=== PATIENT | female | born 1960 | race Caucasian/White ===

== ENCOUNTER 2021-07-09 10:32 | Inpatient (IN) | payer SELFPAY ==
[2021-07-09 11:36] LABS: #Basophils 0.1 thou/uL (0.0-0.2); #Eosinphils 0.1 thou/uL (0.0-0.7); #Lymphocytes 2.3 thou/uL (1.20-3.40); #Monocytes 0.5 thou/uL (0.11-0.59); #Neutrophils 4.3 thou/uL (1.40-6.50); %Lymphocytes 31.2 % (21.0-51.0); %Monocytes 7.2 % (0.0-10.0); %Neutrophils 59.5 % (42.0-75.0); Hemoglobin 13.8 g/dL (12.0-16.0); Mean Corpuscular HGB CONC 34.3 g/dL (32.0-36.0); Mean Corpuscular Hemoglobin 32.5 pg (27.0-31.0); Mean Corpuscular Volume 94.5 fL (78.0-98.0); Mean Platelet Volume 8.1 fL (7.4-10.4); Platelet Count 214 thou/uL (130-400); RBC Distribution Width 11.8 % (11.5-14.5); Red Blood Cell (RBC) Count 4.26 mill/uL (4.20-5.40); White Blood Cell (WBC) Count 7.3 thou/uL (4.8-10.8)
[2021-07-09 11:52] LABS: ALT (SGPT) 12 U/L (8-55); AST (SGOT) 18 U/L (5-34); Albumin 3.7 g/dL (3.5-5.0); Alkaline Phosphatase 67 U/L (40-110); Anion Gap 12 mmol/L (10-20); BUN (Urea Nitrogen) 18 mg/dL (9.8-20.1); Bilirubin, Total 0.3 mg/dL (0.2-1.2); Calc. Creatinine Clearance 0 mL/min (70-130); Calcium 9.3 mg/dL (7.8-10.44); Carbon Dioxide 24 mmol/L (22-29); Chloride 107 mmol/L (98-107); Globulin 2.9 g/dL (2.4-3.5); Glucose 79 mg/dL (70-105); Protein, Total 6.6 g/dL (6.0-8.3); Sodium 139 mmol/L (136-145)
[2021-07-09] MEDS ORDERED: hydrALAZINE 20 MG/ML VIAL SLOW IVP PRN (14:05)
[2021-07-09] MEDS ORDERED: Aspirin 81 mg Enteric Coated Tablet PO SCH (14:15)
[2021-07-09] MEDS ORDERED: Enoxaparin Sodium 40 MG/0.4 ML SYRINGE SC SCH (14:15)
[2021-07-09] MEDS ORDERED: Iopamidol-370 76% 500 ML 1 ML ONE (15:02)
[2021-07-09 17:16] VITALS: BMI 31.5
[2021-07-09] MEDS: Allopurinol 100 MG TAB PO SCH (20:57)
[2021-07-09] MEDS: Atorvastatin Calcium 40 MG TAB PO SCH (20:57)
[2021-07-09] MEDS: Meclizine HCl 25 MG TAB PO SCH (20:57)
[2021-07-09] MEDS: Acetaminophen 325 MG TAB PO PRN (21:49)
[2021-07-10 00:27] LABS: SARS-CoV-2 PCR by NAA Not Detected (NotDetected)
[2021-07-10 05:19] LABS: #Eosinphils 0.1 thou/uL (0.0-0.7); #Lymphocytes 2.7 thou/uL (1.20-3.40); #Monocytes 0.5 thou/uL (0.11-0.59); #Neutrophils 2.5 thou/uL (1.40-6.50); %Basophils 0.7 % (0.0-1.0); %Eosinophils 1.6 % (0.0-10.0); %Lymphocytes 46.3 % (21.0-51.0); %Monocytes 8.6 % (0.0-10.0); %Neutrophils 42.8 % (42.0-75.0); Hemoglobin 12.6 g/dL (12.0-16.0); Mean Corpuscular HGB CONC 34.2 g/dL (32.0-36.0); Mean Corpuscular Hemoglobin 32.6 pg (27.0-31.0); Mean Corpuscular Volume 95.3 fL (78.0-98.0); Mean Platelet Volume 8.1 fL (7.4-10.4); Platelet Count 197 thou/uL (130-400); Red Blood Cell (RBC) Count 3.86 mill/uL (4.20-5.40); White Blood Cell (WBC) Count 5.8 thou/uL (4.8-10.8)
[2021-07-10 05:23] LABS: Anion Gap 11 mmol/L (10-20); BUN (Urea Nitrogen) 16 mg/dL (9.8-20.1); Calc. Creatinine Clearance 111 mL/min (70-130); Carbon Dioxide 24 mmol/L (22-29); Cardiac Risk 3.6 (Less than 4.5); Chloride 108 mmol/L (98-107); Cholesterol 142 mg/dl (< 200 Desired); Glucose 87 mg/dL (70-105); HDL Cholesterol 39 mg/dL (>60 Neg Risk); LDL Cholesterol, Calculated 86 mg/dL; Potassium 4.2 mmol/L (3.5-5.1); Sodium 139 mmol/L (136-145); Triglycerides 83 mg/dL (Less than 150)
[2021-07-10] MEDS: Meclizine HCl 25 MG TAB PO SCH ×3 (06:27→21:24)
[2021-07-10] MEDS: Acetaminophen 325 MG TAB PO PRN ×2 (06:28→12:25)
[2021-07-10] MEDS: Allopurinol 100 MG TAB PO SCH ×2 (09:10→20:16)
[2021-07-10] MEDS: Enoxaparin Sodium 40 MG/0.4 ML SYRINGE SC SCH (09:10)
[2021-07-10] MEDS: Lisinopril 5 MG TAB PO SCH ×2 (09:10→09:13)
[2021-07-10] MEDS: pyridOXINE 50 MG (B6) TAB PO SCH (09:10)
[2021-07-10] MEDS: Aspirin 81 mg Enteric Coated Tablet PO SCH (09:10)
[2021-07-10] MEDS ORDERED: predniSONE 50 MG TAB PO SCH (12:15)
[2021-07-10] MEDS: traMADol HCl 50 MG TAB PO PRN ×2 (12:26→20:14)
[2021-07-10] MEDS: Atorvastatin Calcium 40 MG TAB PO SCH (20:16)
[2021-07-11] MEDS: Meclizine HCl 25 MG TAB PO SCH ×3 (05:52→21:26)
[2021-07-11] MEDS: traMADol HCl 50 MG TAB PO PRN ×2 (05:52→21:25)
[2021-07-11] MEDS: Acetaminophen 325 MG TAB PO PRN ×2 (08:29→23:21)
[2021-07-11] MEDS: Allopurinol 100 MG TAB PO SCH ×2 (08:29→21:26)
[2021-07-11] MEDS: Aspirin 81 mg Enteric Coated Tablet PO SCH (08:30)
[2021-07-11] MEDS: Lisinopril 5 MG TAB PO SCH (08:30)
[2021-07-11] MEDS: predniSONE 50 MG TAB PO SCH (08:30)
[2021-07-11] MEDS: pyridOXINE 50 MG (B6) TAB PO SCH (08:30)
[2021-07-11] MEDS: Enoxaparin Sodium 40 MG/0.4 ML SYRINGE SC SCH (08:31)
[2021-07-11] MEDS: Polyethylene Glycol 3350 17 GM Packet PO PRN (15:15)
[2021-07-11] MEDS: Atorvastatin Calcium 40 MG TAB PO SCH (21:26)
[2021-07-12 06:08] LABS: #Basophils 0.1 thou/uL (0.0-0.2); #Lymphocytes 3.6 thou/uL (1.20-3.40); #Monocytes 0.6 thou/uL (0.11-0.59); #Neutrophils 4.3 thou/uL (1.40-6.50); %Basophils 0.6 % (0.0-1.0); %Eosinophils 0.4 % (0.0-10.0); %Lymphocytes 42.2 % (21.0-51.0); %Monocytes 6.5 % (0.0-10.0); %Neutrophils 50.2 % (42.0-75.0); Hemoglobin 13.4 g/dL (12.0-16.0); Mean Corpuscular HGB CONC 33.3 g/dL (32.0-36.0); Mean Corpuscular Hemoglobin 31.9 pg (27.0-31.0); Mean Platelet Volume 8.4 fL (7.4-10.4); Platelet Count 202 thou/uL (130-400); Red Blood Cell (RBC) Count 4.21 mill/uL (4.20-5.40); White Blood Cell (WBC) Count 8.5 thou/uL (4.8-10.8)
[2021-07-12] MEDS: Acetaminophen 325 MG TAB PO PRN (06:14)
[2021-07-12] MEDS: Meclizine HCl 25 MG TAB PO SCH ×3 (06:14→22:44)
[2021-07-12 06:29] LABS: Anion Gap 12 mmol/L (10-20); BUN (Urea Nitrogen) 16 mg/dL (9.8-20.1); Calc. Creatinine Clearance 111 mL/min (70-130); Carbon Dioxide 24 mmol/L (22-29); Chloride 108 mmol/L (98-107); Potassium 3.9 mmol/L (3.5-5.1); Sodium 140 mmol/L (136-145)
[2021-07-12 06:30] LABS: Calcium 9.2 mg/dL (7.8-10.44); Glucose 80 mg/dL (70-105)
[2021-07-12] MEDS: Polyethylene Glycol 3350 17 GM Packet PO PRN (08:31)
[2021-07-12] MEDS: Lisinopril 5 MG TAB PO SCH (08:31)
[2021-07-12] MEDS: Enoxaparin Sodium 40 MG/0.4 ML SYRINGE SC SCH (08:31)
[2021-07-12] MEDS: Aspirin 81 mg Enteric Coated Tablet PO SCH (08:32)
[2021-07-12] MEDS: predniSONE 50 MG TAB PO SCH (08:32)
[2021-07-12] MEDS: Allopurinol 100 MG TAB PO SCH ×2 (08:32→20:39)
[2021-07-12] MEDS: pyridOXINE 50 MG (B6) TAB PO SCH (08:32)
[2021-07-12] MEDS: traMADol HCl 50 MG TAB PO PRN ×2 (15:22→20:40)
[2021-07-12] MEDS: Atorvastatin Calcium 40 MG TAB PO SCH (20:39)
[2021-07-13 05:04] LABS: #Lymphocytes 4.1 thou/uL (1.20-3.40); #Monocytes 0.6 thou/uL (0.11-0.59); %Basophils 0.4 % (0.0-1.0); %Eosinophils 0.4 % (0.0-10.0); %Lymphocytes 42.1 % (21.0-51.0); %Neutrophils 51.1 % (42.0-75.0); Hemoglobin 13.6 g/dL (12.0-16.0); Mean Corpuscular HGB CONC 33.6 g/dL (32.0-36.0); Mean Corpuscular Hemoglobin 32.5 pg (27.0-31.0); Mean Corpuscular Volume 96.9 fL (78.0-98.0); Mean Platelet Volume 8.2 fL (7.4-10.4); Platelet Count 216 thou/uL (130-400); RBC Distribution Width 11.9 % (11.5-14.5); Red Blood Cell (RBC) Count 4.19 mill/uL (4.20-5.40); White Blood Cell (WBC) Count 9.7 thou/uL (4.8-10.8)
[2021-07-13] MEDS: traMADol HCl 50 MG TAB PO PRN ×3 (05:13→20:41)
[2021-07-13] MEDS: Meclizine HCl 25 MG TAB PO SCH ×3 (05:13→20:40)
[2021-07-13 05:25] LABS: Anion Gap 10 mmol/L (10-20); BUN (Urea Nitrogen) 21 mg/dL (9.8-20.1); Calc. Creatinine Clearance 111 mL/min (70-130); Calcium 9.1 mg/dL (7.8-10.44); Carbon Dioxide 27 mmol/L (22-29); Chloride 106 mmol/L (98-107); Glucose 79 mg/dL (70-105); Potassium 4.1 mmol/L (3.5-5.1); Sodium 139 mmol/L (136-145)
[2021-07-13] MEDS: Lisinopril 5 MG TAB PO SCH (08:48)
[2021-07-13] MEDS: Enoxaparin Sodium 40 MG/0.4 ML SYRINGE SC SCH (08:48)
[2021-07-13] MEDS: Aspirin 81 mg Enteric Coated Tablet PO SCH (08:48)
[2021-07-13] MEDS: predniSONE 50 MG TAB PO SCH (08:48)
[2021-07-13] MEDS: pyridOXINE 50 MG (B6) TAB PO SCH (08:48)
[2021-07-13] MEDS: Allopurinol 100 MG TAB PO SCH ×2 (08:56→20:40)
[2021-07-13] MEDS: Acetaminophen 325 MG TAB PO PRN ×2 (08:56→18:29)
[2021-07-13] MEDS: Polyethylene Glycol 3350 17 GM Packet PO PRN (13:42)
[2021-07-13] MEDS: Atorvastatin Calcium 40 MG TAB PO SCH (20:40)
[2021-07-14] MEDS: Meclizine HCl 25 MG TAB PO SCH ×3 (05:06→22:01)
[2021-07-14] MEDS: Acetaminophen 325 MG TAB PO PRN (05:06)
[2021-07-14 05:53] LABS: #Lymphocytes 3.2 thou/uL (1.20-3.40); #Monocytes 0.6 thou/uL (0.11-0.59); #Neutrophils 4.8 thou/uL (1.40-6.50); %Basophils 0.4 % (0.0-1.0); %Eosinophils 0.3 % (0.0-10.0); %Lymphocytes 36.9 % (21.0-51.0); %Monocytes 6.8 % (0.0-10.0); %Neutrophils 55.6 % (42.0-75.0); Hemoglobin 13.5 g/dL (12.0-16.0); Mean Corpuscular HGB CONC 33.2 g/dL (32.0-36.0); Mean Corpuscular Hemoglobin 32.5 pg (27.0-31.0); Mean Corpuscular Volume 97.7 fL (78.0-98.0); Mean Platelet Volume 8.4 fL (7.4-10.4); Platelet Count 214 thou/uL (130-400); Red Blood Cell (RBC) Count 4.17 mill/uL (4.20-5.40); White Blood Cell (WBC) Count 8.6 thou/uL (4.8-10.8)
[2021-07-14 06:19] LABS: Anion Gap 11 mmol/L (10-20); BUN (Urea Nitrogen) 16 mg/dL (9.8-20.1); Calc. Creatinine Clearance 108 mL/min (70-130); Calcium 9.1 mg/dL (7.8-10.44); Carbon Dioxide 26 mmol/L (22-29); Chloride 106 mmol/L (98-107); Glucose 74 mg/dL (70-105); Potassium 4.1 mmol/L (3.5-5.1); Sodium 139 mmol/L (136-145)
[2021-07-14] MEDS: pyridOXINE 50 MG (B6) TAB PO SCH (08:40)
[2021-07-14] MEDS: Allopurinol 100 MG TAB PO SCH ×2 (08:40→19:30)
[2021-07-14] MEDS: Enoxaparin Sodium 40 MG/0.4 ML SYRINGE SC SCH (08:40)
[2021-07-14] MEDS: Lisinopril 5 MG TAB PO SCH (08:40)
[2021-07-14] MEDS: predniSONE 50 MG TAB PO SCH (08:40)
[2021-07-14] MEDS: Aspirin 81 mg Enteric Coated Tablet PO SCH (08:40)
[2021-07-14] MEDS: traMADol HCl 50 MG TAB PO PRN (19:30)
[2021-07-14] MEDS: Atorvastatin Calcium 40 MG TAB PO SCH (19:30)
[2021-07-15] MEDS: traMADol HCl 50 MG TAB PO PRN (05:28)
[2021-07-15] MEDS: Meclizine HCl 25 MG TAB PO SCH (05:29)
[2021-07-15 06:14] LABS: #Basophils 0.1 thou/uL (0.0-0.2); #Eosinphils 0.1 thou/uL (0.0-0.7); #Monocytes 0.8 thou/uL (0.11-0.59); #Neutrophils 4.7 thou/uL (1.40-6.50); %Basophils 0.7 % (0.0-1.0); %Eosinophils 0.6 % (0.0-10.0); %Lymphocytes 46.9 % (21.0-51.0); %Monocytes 7.1 % (0.0-10.0); %Neutrophils 44.6 % (42.0-75.0); Hemoglobin 15.3 g/dL (12.0-16.0); Mean Corpuscular Hemoglobin 32.1 pg (27.0-31.0); Mean Corpuscular Volume 97.3 fL (78.0-98.0); Mean Platelet Volume 8.3 fL (7.4-10.4); Platelet Count 227 thou/uL (130-400); Red Blood Cell (RBC) Count 4.76 mill/uL (4.20-5.40); White Blood Cell (WBC) Count 10.6 thou/uL (4.8-10.8)
[2021-07-15 06:32] LABS: Anion Gap 13 mmol/L (10-20); BUN (Urea Nitrogen) 17 mg/dL (9.8-20.1); Calc. Creatinine Clearance 100 mL/min (70-130); Calcium 9.6 mg/dL (7.8-10.44); Carbon Dioxide 27 mmol/L (22-29); Chloride 104 mmol/L (98-107); Glucose 71 mg/dL (70-105); Potassium 3.9 mmol/L (3.5-5.1); Sodium 140 mmol/L (136-145)
[2021-07-15 08:04] VITALS: BP 142/99; TEMP 98.2
[2021-07-15] MEDS: Lisinopril 5 MG TAB PO SCH (08:06)
[2021-07-15] MEDS: predniSONE 50 MG TAB PO SCH (08:06)
[2021-07-15] MEDS: Aspirin 81 mg Enteric Coated Tablet PO SCH (08:06)
[2021-07-15] MEDS: Allopurinol 100 MG TAB PO SCH (08:06)
[2021-07-15] MEDS: pyridOXINE 50 MG (B6) TAB PO SCH (08:06)
[2021-07-15] MEDS: Enoxaparin Sodium 40 MG/0.4 ML SYRINGE SC SCH (08:07)
== END 2021-07-15 08:59 | disposition home or self-care (01) | DRG 149 ==
LOC: ERS 10:32 → NEURO 14:12 → OBSVTOIN 07-10 16:16
PROVIDERS: ADMIT Internal Medicine; ATTEND Internal Medicine
DX: H81.10 Benign paroxysmal vertigo, unspecified ear (principal); Z20.822 Contact with and (suspected) exposure to COVID-19; I10 Essential (primary) hypertension; M10.9 Gout, unspecified; F40.240 Claustrophobia; I67.1 Cerebral aneurysm, nonruptured; M79.671 Pain in right foot; Z86.73 Personal history of transient ischemic attack (TIA), and cerebral infarction without residual deficits; Z95.828 Presence of other vascular implants and grafts; Z87.891 Personal history of nicotine dependence; Z88.5 Allergy status to narcotic agent; Z79.899 Other long term (current) drug therapy; Z79.82 Long term (current) use of aspirin
CPT/HCPCS: 36415; 70450; 70496; 70498; 80048; 80053; 80061; 83036; 84484; 85025; 93005; 93010; 93306; 96372; G0378; J1650; J7512; Q9967; U0003; U0005